=== PATIENT | female | born 1990 | race Caucasian/White ===

== ENCOUNTER 2024-04-13 19:19 | Emergency (ER) | payer MEDICARE, SELFPAY ==
[2024-04-13 19:32] VITALS: BP 121/81; PULSE 71; TEMP 37.3; O2SAT 100; BMI 27.3
[2024-04-13 20:08] VITALS: BP 105/60; PULSE 72; O2SAT 100
--- NOTE | 2024-04-13 20:29 | ED_ITS ---
HPI HPI - General Adult General Chief complaint: Headache Stated complaint: MIGRAINE Time Seen by Provider: 04/13/24 20:23 Source: patient Mode of arrival: walk-in Limitations: no limitations History of Present Illness HPI narrative: patient presents complaining of migraine for 2 days. States similar headaches in the past. Last time she had a migraine like this was a year ago. No vomiting or photophobia. neg numbness or extremity weakness. No neck pain or stiffiness Related Data Home Medications ?Medication ?Instructions ?Recorded ?Confirmed atomoxetine 60 mg capsule 60 mg PO DAILY 04/13/24 04/13/24 (Strattera) cariprazine 3 mg capsule (Vraylar) 3 mg PO Q24H 04/13/24 04/13/24 escitalopram oxalate 20 mg tablet 20 mg PO DAILY 04/13/24 04/13/24 Allergies Allergy/AdvReac Type Severity Reaction Status Date / Time Sulfa (Sulfonamide Allergy Rash Verified 04/13/24 19:37 Antibiotics) Opioid HPI Opioid Management Most Recent Opioid Data: No Data to Display Review of Systems ROS Status of ROS 10 or more systems reviewed and unremark able except as noted in history and below Exam Constitutional Vital Signs, click to edit/add: Last Vital Signs Temp 99.1 F 04/13/24 19:32 Pulse 72 04/13/24 20:08 Resp 18 04/13/24 20:08 BP 105/60 04/13/24 20:08 Pulse Ox 100 04/13/24 20:08 O2 Del Method Room Air 04/13/24 20:08 Common normals: no apparent distress, average body habitus and oriented x3 HENMT Common normals: normocephalic and head/scalp atraumatic Eye Common normals: EOMs intact bilaterally and conjunctivae normal Respiratory Common normals: normal respiratory effort, no retractions, no use of accessory muscles and clear to auscultation bilaterally Cardio Common normals: regular rate, regular rhythm, S1 normal heart sound and S2 normal heart sound GI Common normals: Normal to inspection, nondistended, normoactive bowel sounds present, soft to palpation and non-tender Extremity Common normals: normal to inspection and full ROM Neuro Common normals: oriented x3, CN's II-XII intact bilaterally, moves all extremities and no focal motor deficits Psych Appearance: grossly normal Course Vital Signs Vital signs: Vital Signs Temperature 99.1 F 04/13/24 19:32 Pulse Rate 71 04/13/24 19:32 Respiratory Rate 16 04/13/24 19:32 Blood Pressure 121/81 04/13/24 19:32 Pulse Oximetry 100 04/13/24 19:32 Oxygen Delivery Method Room Air 04/13/24 19:32 Temperature 99.1 F 04/13/24 19:32 Pulse Rate 72 04/13/24 20:08 Respiratory Rate 18 04/13/24 20:08 Blood Pressure 105/60 04/13/24 20:08 Pulse Oximetry 100 04/13/24 20:08 Oxygen Delivery Method Room Air 04/13/24 20:08 Medical Decision Making MDM Narrative Medical decision making narrative: patient presents with migraine headache. similar to past migraines. Treated with cocktail in the department and is feeling better and requesting discharge. Discharge home in improved condition Lab Data Labs: Lab Results 04/13/24 Range/Units 20:36 WBC 7.2 (4.0-11.0) 10^3/uL RBC 4.04 L (4.20-5.40) 10^6/uL Hgb 9.6 L (12.0-16.0) g/dL Hct 31.5 L (36.0-48.0) % MCV 78.0 L (81.0-99.0) fL MCH 23.8 L (26.7-34.0) pg MCHC 30.5 (29.9-35.2) g/dL RDW 15.8 H (11.0-15.0) % Plt Count 304 (150-450) 10^3/uL MPV 9.0 L (9.5-13.5) fL Neut % (Auto) 64.2 (43.0-75.0) % Lymph % (Auto) 24.5 (20.5-60.0) % [place] % (Auto) 8.6 (1.7-12.0) % Eos % (Auto) 1.7 (0.9-7.0) % Baso % (Auto) 0.6 (0.2-2.0) % Neut # (Auto) 4.7 (1.4-6.5) 10^3/uL Lymph # (Auto) 1.8 (1.2-3.8) 10^3/uL [place] # (Auto) 0.6 (0.3-0.8) 10^3/uL Eos # (Auto) 0.1 (0.0-0.7) 10^3/uL Baso # (Auto) 0.0 (0.0-0.1) 10^3/uL Abs Immat Gran (auto) 0.03 (0.00-0.03) 10^3/uL Imm/Tot Granulo (auto) 0.4 (0.0-0.5) % Sodium 137 (136-145) mmol/L Potassium 3.4 L (3.5-5.1) mmol/L Chloride 104 (98-107) mmol/L Carbon Dioxide 25.2 (21.0-32.0) mmol/L Anion Gap 11.2 BUN 11.0 (7.0-18.0) mg/dL Creatinine 0.70 (0.55-1.02) mg/dL Est GFR ( Amer) >60 (>=60) Est GFR (Non-Af Amer) >60 (>=60) BUN/Creatinine Ratio 15.7 Glucose 82 (74-106) mg/dL Lactate 0.6 (0.4-2.0) mmol/L Calcium 8.9 (8.5-10.1) mg/dL Discharge Plan Discharge Stand Alone Forms: Portal Instructions Chief Complaint: Headache Clinical Impression: Migraine Patient Disposition: Home, Self-Care Prescriptions / Home Meds: No Action Vraylar 3 mg capsule 3 mg PO Q24H atomoxetine [Strattera] 60 mg capsule 60 mg PO DAILY escitalopram oxalate 20 mg tablet 20 mg PO DAILY Print Language: Bengali Instructions: Migraine Headache (ED) Additional Instructions: follow up with your doctor next week Referrals: Physician,Non-Staff, MD [Primary Care Provider] - 1 week
[2024-04-13 20:44] LABS: Basophils Percent Auto 0.6 % (0.2-2.0); Eosinophils Absolute Auto 0.1 10^3/uL (0.0-0.7); Eosinophils Percent Auto 1.7 % (0.9-7.0); Hematocrit 31.5 % (36.0-48.0); Hemoglobin 9.6 g/dL (12.0-16.0); Immature Granulocytes Abs Auto 0.03 10^3/uL (0.00-0.03); Immature Granulocytes Pct Auto 0.4 % (0.0-0.5); Lymphocytes Absolute Auto 1.8 10^3/uL (1.2-3.8); Lymphocytes Percent Auto 24.5 % (20.5-60.0); Mean Corpuscular HGB Conc 30.5 g/dL (29.9-35.2); Mean Corpuscular Hemoglobin 23.8 pg (26.7-34.0); Monocytes Absolute Auto 0.6 10^3/uL (0.3-0.8); Monocytes Percent Auto 8.6 % (1.7-12.0); Neutrophils Absolute Auto 4.7 10^3/uL (1.4-6.5); Neutrophils Percent Auto 64.2 % (43.0-75.0); Platelet Count 304 10^3/uL (150-450); Red Blood Count 4.04 10^6/uL (4.20-5.40); Red Cell Distribution Width 15.8 % (11.0-15.0); White Blood Count 7.2 10^3/uL (4.0-11.0)
[2024-04-13 20:52] LABS: Anion Gap 11.2; BUN Creatinine Ratio 15.7; Calcium 8.9 mg/dL (8.5-10.1); Carbon Dioxide 25.2 mmol/L (21.0-32.0); Chloride 104 mmol/L (98-107); Estimated GFR (African America >60 (>=60); Estimated GFR (Non-African Ame >60 (>=60); Glucose 82 mg/dL (74-106); Potassium 3.4 mmol/L (3.5-5.1); Sodium 137 mmol/L (136-145)
[2024-04-13] MEDS: 0.9 % SODIUM CHLORIDE 1,000 ML 999 ML IV (20:59)
[2024-04-13 21:01] LABS: Lactate/Lactic Acid 0.6 mmol/L (0.4-2.0)
[2024-04-13] MEDS: DIPHENHYDRAMINE HCL 50 MG/ML VIAL IV (21:01)
[2024-04-13] MEDS: METOCLOPRAMIDE HCL 10 MG/2 ML VIAL IVP (21:01)
[2024-04-13] MEDS: METHYLPREDNISOLONE SOD SUCC PF 125 MG/2 ML VIAL IVP (21:01)
[2024-04-13 21:25] VITALS: BP 112/76; PULSE 68; O2SAT 100
== END 2024-04-13 21:22 | disposition home or self-care (01) ==
PROVIDERS: Emergency Provider Internal Medicine
DX: G43.909 Migraine, unspecified, not intractable, without status migrainosus (principal)
CPT/HCPCS: 36415; 80048; 83605; 85025; 96374; 96375; 99284; J1200; J2765; J2919